=== PATIENT | female | born 1970 | race Caucasian/White ===

== ENCOUNTER 2022-10-15 10:53 | Inpatient (IN) | payer MEDICAID, SELFPAY ==
[2022-10-15 11:03] VITALS: BP 154/103; PULSE 96; RESP 20; TEMP 36.6; O2SAT 97
[2022-10-15 11:05] VITALS: BMI 31.4
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
--- NOTE | 2022-10-15 12:50 | PC.NURSE ---
Patient states she began drinking last night because she was feeling depressed after she began thinking about her daughter that 4 years ago. She state she also thought being sleep deprived was making her mental state worse as well because she has neighbors from [facility]. She says she called her family caseworker at [facility], where she has been going approximately 13 years, and the family caseworker sent a migratory game bird biologist for a wellfare check. She says he then convinced her to go to the hospital in [place] where they said she was suicidal. However, she is currently claiming she is not. This contradicts what the officer had said in the affidavit, which states I responded for Pat making statements that she was going to end it all. Pat did tell this RN that she said she wanted to go be with her daughter, but did not mean it as a suicidal threat. Patient denies SI and HI at this time as well as AVH, although she says she sees demons occasionally. Patient is calm and cooperative with assessment, but does seem anxious.
[2022-10-15] MEDS: nicotine 21 mg Patch 1 PATCH TRANSDERMA (12:55)
[2022-10-15] MEDS: duloxetine 30 mg Capsule PO (12:57)
[2022-10-15] MEDS: ARIPiprazole 10 mg Tablet PO (12:57)
[2022-10-15 14:00] VITALS: BP 151/91; PULSE 95; RESP 20; TEMP 36.8; O2SAT 96
[2022-10-15] MEDS: benztropine 1 mg Tablet 0.5 MG PO (18:17)
[2022-10-15 20:11] VITALS: BP 169/89; PULSE 107; RESP 18; TEMP 36.9; O2SAT 97
[2022-10-15] MEDS: prazosin 1 mg Capsule 2 MG PO (21:48)
[2022-10-15] MEDS: trazodone 100 mg Tablet 200 MG PO (21:48)
[2022-10-15] MEDS: prazosin 5 mg Capsule PO (21:48)
[2022-10-16] MEDS: atorvastatin 40 mg Tablet 20 MG PO (09:03)
[2022-10-16] MEDS: buPROPion XL (24 HR) 300 mg Tablet PO (09:03)
[2022-10-16] MEDS: naltrexone hcl 50 mg Tablet PO (09:03)
[2022-10-16] MEDS: hyDROXYzine 25 mg Capsule PO (09:03)
[2022-10-16] MEDS: duloxetine 30 mg Capsule PO (09:03)
[2022-10-16] MEDS: ARIPiprazole 10 mg Tablet PO (09:04)
[2022-10-16] MEDS: benztropine 1 mg Tablet 0.5 MG PO ×2 (09:04→20:36)
[2022-10-16] MEDS: pantoprazole DR 40 mg Tablet PO (09:04)
[2022-10-16] MEDS: nicotine 21 mg Patch 1 PATCH TRANSDERMA (09:08)
[2022-10-16 14:00] VITALS: BP 107/62; PULSE 93; RESP 16; TEMP 36.6; O2SAT 98
--- NOTE | 2022-10-16 14:11 | PC.NURSE ---
attended morning group @ 1033
--- NOTE | 2022-10-16 16:25 | P.NPUPN_ITS ---
Subjective NPU Subjective: Patient is a 52-year-old white female with a history of refractory depression, PTSD, alcohol abuse admitted with suicidal ideation and worsening depression. The patient had reported chronic PTSD symptoms although she stated that she had been receiving psychotherapy. She was in agreement with a new antidepressant with previous failure on Effexor at 225 mg daily. She had reported no cravings for alcohol but stated that she had relapsed twice since starting the naltrexone oral dose. The patient was informed that the intramuscular once a month version of naltrexone had greater success with reducing cravings for alcohol and it should be initiated on an outpatient basis. Patient had been less isolative and cooperative on the milieu. She had reported some difficulties with sleep continuity disruption. She had reported low energy and low motivation. She had reported having chronic problems with depression for several years with reported failures on SSRI medications, Remeron and reporting having continued psychotherapy as well for treatment of depression. Patient was introduced to other potential options including transcranial magnetic stimulation and the use of Spravato adjunctively to help with refractory depression. Patient had reported continued tearfulness and reported frequently feeling tired with low energy. Mental Status Exam MSE Comments: She is a casually dressed white female who was alert and oriented to person place and time. She appeared to be a good historian. She appeared anergic. There was no evidence of any abnormal involuntary motor movements tics or tremors appreciated. There was significant psychomotor retardation that was noted. Her speech was normal in regards to rate rhythm and prosody. Her mood was described as depressed. Her affect was restricted in range and mood- congruent. She denied any active suicidal ideation although she had acknowledged having a passive wish. She denied any homicidal ideation. She did not appear to be responding to internal stimuli there is no evidence of any delusional thinking process. Her attention span appeared fair. Her recent memory was intact along with her remote memory. Her attention span appeared adequate. Her insight appeared poor. Her judgment was poor. Her impulse control appeared limited at this time. Vitals/I&O/Wt Last Vital Signs Temp 98 F 10/16/22 14:00 Pulse 93 10/16/22 14:00 Resp 16 10/16/22 14:00 BP 107/62 10/16/22 14:00 Pulse Ox 98 10/16/22 14:00 O2 Del Method Room Air 10/16/22 14:00 Weight last 48 hrs Weight 86.636 kg Weight 85.729 kg A&P Assessment and plan (1) Major depressive disorder, single episode: (2) Panic disorder: (3) PTSD (post-traumatic stress disorder): (4) OCD (obsessive compulsive disorder): Plan This is a 52-year-old female with a history of multiple psychiatric issues admitted with concerns over passive suicidal ideation and worsening depression in the context of alcohol use. Patient would likely benefit from a acute inpatient hospital stay at this time. 1.? ? Engage? patient in individual ,milieu, and group therapy ?2. ? Continue Abilify 10 mg daily, continue Wellbutrin at 300 mg daily, continue naltrexone 50 mg daily, continue prazosin at 7 mg daily, and continue Cymbalta at 30 mg daily with likely titration upwards in 1 to 2 days to target depression. ?3. ? TO-15 minute checks on the unit. ?4.? Recommend sober living treatment at the highest level of care to which the patient is willing to commit. 5. ? [facility] protocol. Involuntary Hold Information 96 Hour Hold: 96 Hour Involuntary Admission: No Attestations NPU Medical Necessity Statement*: Inpatient hospitalization is medically necessary and deemed to be the clinically appropriate intervention at this time. We will monitor and initiate medications while making changes as indicated. Her likely length of stay is 4 to 6 days. Coding Level of Care Code Acute Code for [facility] Fwd Diagnoses Major depressive disorder, single episode F32.9 Panic disorder F41.0 PTSD (post-traumatic stress disorder) F43.10 OCD (obsessive compulsive disorder) F42.9
[2022-10-16 19:52] VITALS: BP 110/79; PULSE 92; RESP 18; TEMP 36.8; O2SAT 95
[2022-10-16] MEDS: trazodone 100 mg Tablet 200 MG PO (20:35)
[2022-10-16] MEDS: benztropine 1 mg Tablet PO (20:35)
[2022-10-16] MEDS: prazosin 1 mg Capsule 2 MG PO (20:35)
[2022-10-16] MEDS: prazosin 5 mg Capsule PO (20:35)
[2022-10-17 06:30] VITALS: RESP 18
--- NOTE | 2022-10-17 06:30 | PC.NURSE ---
resp 18 pt sleeping
[2022-10-17] MEDS: hyDROXYzine 25 mg Capsule PO (08:35)
[2022-10-17] MEDS: duloxetine 30 mg Capsule PO ×2 (08:36→18:14)
[2022-10-17] MEDS: ARIPiprazole 10 mg Tablet PO (08:36)
[2022-10-17] MEDS: atorvastatin 40 mg Tablet 20 MG PO (08:36)
[2022-10-17] MEDS: naltrexone hcl 50 mg Tablet PO (08:36)
[2022-10-17] MEDS: buPROPion XL (24 HR) 300 mg Tablet PO (08:37)
[2022-10-17] MEDS: pantoprazole DR 40 mg Tablet PO (08:37)
[2022-10-17] MEDS: benztropine 1 mg Tablet 0.5 MG PO ×2 (08:39→22:03)
[2022-10-17] MEDS: blistex lip oint 7 gm Tube 1 APPLIC TOPICAL (12:03)
[2022-10-17 14:00] VITALS: BP 123/80; PULSE 92; RESP 18; TEMP 36.7; O2SAT 93
--- NOTE | 2022-10-17 16:34 | P.NPUPN_ITS ---
Subjective NPU Subjective: Patient is a 52-year-old white female with a history of refractory depression, PTSD, alcohol abuse admitted with suicidal ideation and worsening depression. The patient reported that she had been feeling better. She reported no side effects from the Cymbalta at this time. She had stated no current cravings for alcohol. She had been encouraged to remain on naltrexone oral on an outpatient basis until she could receive the once a month Vivitrol shot in the lieu of it. She reported that she was feeling less hopeless today. She had continued to report having been reminded of her now daughter. She had stated that she had struggled greatly from recovering from her daughter's . She had reported continued flashbacks and reoccurring thoughts about her daughter. She had reported being motivated to continue therapy but stated that she often used alcohol as a coping mechanism to manage her stress. Mental Status Exam MSE Comments: She is a casually dressed white female who was alert and oriented to person place and time. She appeared to be a good historian. Continued to be some mild psychomotor retardation noted. There was no evidence of any abnormal involuntary motor movements tics or tremors appreciated. Her speech was normal in regards to rate rhythm and prosody. Her mood was described as depressed although she reported feeling better. Her affect remained restricted in range. She denied any active suicidal ideation today. She denied any homicidal ideation. She did not appear to be responding to internal stimuli there is no evidence of any delusional thinking process. Her attention span appeared fair. Her recent memory was intact along with her remote memory. Her attention span appeared adequate. Her insight appeared to be improving. Her judgment was limited. Her impulse control appeared limited at this time. Vitals/I&O/Wt Last Vital Signs Temp 98.0 F 10/17/22 14:00 Pulse 92 10/17/22 14:00 Resp 18 10/17/22 14:00 BP 123/80 10/17/22 14:00 Pulse Ox 93 10/17/22 14:00 O2 Del Method Room Air 10/16/22 19:52 Weight last 48 hrs Weight 86.636 kg A&P Assessment and plan (1) Major depressive disorder, single episode: (2) Panic disorder: (3) PTSD (post-traumatic stress disorder): (4) OCD (obsessive compulsive disorder): Plan This is a 52-year-old female with a history of multiple psychiatric issues admitted with concerns over passive suicidal ideation and worsening depression in the context of alcohol use. Patient would likely benefit from a acute inpatient hospital stay at this time. 1.? ? Engage? patient in individual ,milieu, and group therapy ?2. ? Continue Abilify 10 mg daily, continue Wellbutrin at 300 mg daily, continue naltrexone 50 mg daily, continue prazosin at 7 mg daily, and increase Cymbalta to 60 mg daily. ?3. ? TO-15 minute checks on the unit. ?4.? Recommend sober living treatment at the highest level of care to which the patient is willing to commit. 5. ? [facility] protocol. Involuntary Hold Information 96 Hour Hold: 96 Hour Involuntary Admission: No Attestations NPU Medical Necessity Statement*: Inpatient hospitalization is medically necessary and deemed to be the clinically appropriate intervention at this time. We will monitor and initiate medications while making changes as indicated. Her likely length of stay is 2-3 days. Coding Level of Care Code Acute Code for [facility] Diagnoses Major depressive disorder, single episode F32.9 Panic disorder F41.0 PTSD (post-traumatic stress disorder) F43.10 OCD (obsessive compulsive disorder) F42.9
[2022-10-17 20:06] VITALS: BP 120/69; PULSE 90; RESP 16; TEMP 36.7; O2SAT 96
[2022-10-17] MEDS: prazosin 1 mg Capsule 2 MG PO (20:48)
[2022-10-17] MEDS: prazosin 5 mg Capsule PO (20:48)
[2022-10-17] MEDS: trazodone 100 mg Tablet 200 MG PO (20:48)
[2022-10-18 06:00] VITALS: RESP 20
--- NOTE | 2022-10-18 06:25 | PC.NURSE ---
resp 20 pt sleeping
[2022-10-18] MEDS: buPROPion XL (24 HR) 300 mg Tablet PO (10:12)
[2022-10-18] MEDS: naltrexone hcl 50 mg Tablet PO (10:12)
[2022-10-18] MEDS: ARIPiprazole 10 mg Tablet PO (10:12)
[2022-10-18] MEDS: pantoprazole DR 40 mg Tablet PO (10:13)
[2022-10-18] MEDS: atorvastatin 40 mg Tablet 20 MG PO (10:13)
[2022-10-18] MEDS: benztropine 1 mg Tablet 0.5 MG PO (10:14)
[2022-10-18] MEDS: duloxetine 60 mg Capsule PO (10:14)
[2022-10-18] MEDS: hyDROXYzine 25 mg Capsule PO (10:15)
[2022-10-18 12:31] VITALS: BP 115/75; PULSE 15; RESP 85; TEMP 36.8
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
== END 2022-10-18 13:25 | disposition home or self-care (01) | DRG 881 ==
PROVIDERS: Admitting Provider Psychiatry & Neurology Psychiatry; Visit Provider Psychiatry & Neurology Psychiatry
DX: F32.9 Major depressive disorder, single episode, unspecified (principal); R45.851 Suicidal ideations; F10.10 Alcohol abuse, uncomplicated; I10 Essential (primary) hypertension; E78.00 Pure hypercholesterolemia, unspecified; F41.0 Panic disorder [episodic paroxysmal anxiety]; F43.10 Post-traumatic stress disorder, unspecified; F42.9 Obsessive-compulsive disorder, unspecified; Z81.8 Family history of other mental and behavioral disorders; Z81.1 Family history of alcohol abuse and dependence; Z91.52 Personal history of nonsuicidal self-harm; Z91.410 Personal history of adult physical and sexual abuse; Z62.810 Personal history of physical and sexual abuse in childhood; Z63.4 Disappearance and death of family member
CPT/HCPCS: 97150; 97165; 99238